=== PATIENT | female | born 1930 | race Caucasian/White ===

== ENCOUNTER 2017-11-03 12:55 | Inpatient (IN) | payer MEDICARE, BC ==
[~2017-11-03] VITALS: Ht 195.6 cm; Wt 77.6 kg
[~2017-11-03 12:55] MED LIST: CALC1TAB PO; CYAN100071 PO; ESOM40CA PO; LACT1CAP71 PO; LEVO88TA5 PO; LISI40TA4 PO; OMEG1CAP18 PO; PARO20TA7 PO; POLY17PO4 PO; QUET25TA PO
--- NOTE | 2017-11-03 13:00 | NUR ---
PATIENT TO ED DT PERSISTENT ABDOMINAL PAIN, 6/10, NON RADIATING. PATIENT WAS SEEN YESTERDAY AT [facility] FOR THE SAME COMPLAINT. PATIENT IS AWAKE AND ALERT, VSS.
--- NOTE | 2017-11-03 13:25 | NUR ---
LEFT A VOICEMAIL TO MD FROY MCCARTNEY-- [phone] OFFICE IS CLOSE FOR LUNCH UNTIL 1400. WILL AGAIN IF NO CALL BACK RECEIVED
[2017-11-03] MEDS ORDERED: IV NS 0.9% 500 ML BAG IV ONE (13:30)
[2017-11-03] MEDS ORDERED: MAG HYDROX/AL HYDROX/SIMETH 30 ML UDC PO ONE (13:30)
[2017-11-03] MEDS ORDERED: LIDOCAINE VISCOUS 2% UD 15 ML UDC MM ONE (13:30)
[2017-11-03] MEDS ORDERED: MAG HYDROX/AL HYDROX/SIMETH 30 ML UDC ONE (13:44)
[2017-11-03] MEDS ORDERED: LIDOCAINE VISCOUS 2% UD 15 ML UDC ONE (13:44)
[2017-11-03 13:45] LABS: BASOPHILS # (AUTO) 0.2 /CMM (0.0-0.2); EOSINOPHILS # (AUTO) 0.1 /CMM (0.0-0.7); EOSINOPHILS % (AUTO) 1.1 % (0.0-6.0); HEMATOCRIT 39 % (33-45); HEMOGLOBIN 13.1 g/dL (11.5-14.8); LYMPHOCYTES # (AUTO) 1.2 /CMM (0.8-4.8); LYMPHOCYTES % (AUTO) 15.8 % (20.0-44.0); MEAN CORPUSCULAR HEMOGLOBIN 30 PG (26.0-33.0); MEAN CORPUSCULAR HGB CONC 34 g/dl (31.0-36.0); MEAN CORPUSCULAR VOLUME 88 fL (82-100); MONOCYTES # (AUTO) 0.8 /CMM (0.1-1.30); MONOCYTES % (AUTO) 10.4 % (2.0-12.0); NEUTROPHILS # (AUTO) 5.4 /CMM (1.8-8.9); NEUTROPHILS % (AUTO) 69.7 % (43.0-81.0); PLATELET COUNT (AUTO) 256 /CMM (150-450); RDW COEFFICIENT OF VARIATION 13.3 (11.5-15.0); RED BLOOD CELL COUNT(AUTO) 4.39 MIL/uL (4.0-5.2); WHITE BLOOD COUNT (AUTO) 7.7 K/uL (4.3-11.0)
[2017-11-03 13:54] LABS: CALCIUM, SERUM 9.3 mg/dL (8.5-10.1); CARBON DIOXIDE 27 mmol/L (21-32); CHLORIDE 106 mmol/L (98-107); GLUCOSE 100 mg/dL (74-106); POTASSIUM 3.8 mmol/L (3.5-5.1); SODIUM SERUM 138 mmol/L (136-145); UREA NITROGEN, BLOOD 15 mg/dL (7-18)
[2017-11-03 14:01] LABS: ALANINE AMINOTRANSFERASE 27 U/L (12-78); ALBUMIN 3.6 g/dL (3.4-5.0); ALKALINE PHOSPHATASE 89 U/L (46-116); ASPARTATE AMINOTRANSFERASE 19 U/L (15-37); BILIRUBIN,DIRECT 0.1 mg/dL (0.0-0.2); BILIRUBIN,TOTAL 0.7 mg/dL (0.2-1.0); LIPASE 165 U/L (73-393); TOTAL PROTEIN, SERUM 7.1 g/dL (6.4-8.2)
[2017-11-03 14:03] LABS: TROPONIN I < 0.017 ng/mL (0.00-0.056)
--- NOTE | 2017-11-03 14:48 | NUR ---
PAGED DR MCCARTNEY AGAIN
--- NOTE | 2017-11-03 14:52 | NUR ---
PER MD IQBAL, PT WILL PROBABLY BE ADMITTED TO [facility],
--- NOTE | 2017-11-03 15:14 | NUR ---
PAGED LETICIA FOR EVAL
[2017-11-03] MEDS ORDERED: LOSA50TA21 PO (15:31)
[2017-11-03] MEDS ORDERED: DOXE10CA2 PO (15:31)
[2017-11-03] MEDS ORDERED: LORA0.5T PO (15:31)
[2017-11-03] MEDS ORDERED: PARO40TA PO (15:31)
--- NOTE | 2017-11-03 15:43 | NUR ---
ADMIT UNDER MD KIRBY
[2017-11-03] MEDS ORDERED: LORAZEPAM 1 MG TABLET PO ONE (17:00)
[2017-11-03] MEDS ORDERED: LORAZEPAM 1 MG TABLET ONE (17:08)
--- NOTE | 2017-11-03 17:14 | NUR ---
REPORT GIVEN TO TERE LOPEZ FOR BRITTNEY
--- NOTE | 2017-11-03 17:18 | NUR ---
PATIENT WAS TRANSPORTED TO [facility]. VSS
[2017-11-03] MEDS ORDERED: MAGNESIUM HYDROXIDE 30 ML UDC PO PRN (18:00)
--- NOTE | 2017-11-03 18:12 | NUR ---
RN-CO:Upon face to face , patient who is alert and oriented x4,calm and cooperative. She signed the Voluntary admission. Dr Ponce seen and examined her today with orders noted. Patient;s belongings was screened and valuables was taken to safe. Body assessment was done by primary RN. Orientation to the unit was rendered, and "Patient's Rights was discussed, booklet was given." We will endorsed the admission to the admitting RN for night club manager.
--- NOTE | 2017-11-03 18:13 | NUR ---
RN NOTE: skin assessment and pictures done.
[2017-11-03 19:00] VITALS: BP 142/78
--- NOTE | 2017-11-03 19:05 | NUR ---
GPS/RN-NOTES: PATIENT C/O DIFFICULTY HAVING BOWEL MOVEMENT, PATIENT STATED SHE HAD BM 3-4 DAYS AGO, REQUESTED ENEMA, FLEET ENEMA 1 PER RECTALLY GIVEN PRN ORDER, WITH GOOD EFFECT.
[2017-11-03] MEDS: NA PHOS,M-B/NA PHOS,DI-BA 1 EA ENEMA RC PRN (19:28)
[2017-11-03] MEDS ORDERED: ONDANSETRON HCL 4 MG/5 ML SOLUTION PO PRN (20:00)
--- NOTE | 2017-11-03 20:00 | NUR ---
GPS RN NOTES: SPOKE TO ALEX GUZMÁN [employer], COVERING FOR DR. JARAMILLO REGARDING MEDICATION RECONCILIATION SHE SAID TO CONTINUE HOME MEDS. PATIENT NOTED VOMITING, NOTIFIED ALEX GUZMÁN WITH ORDER OF ZOFRAN 4MG PO Q6HRS PRN NOTED AND CARRIED OUT. WILL CONTINUE TO MONITOR.
[2017-11-03] MEDS ORDERED: ONDANSETRON 4 MG TAB.RAPDIS PO PRN (20:30)
[2017-11-03] MEDS: PAROXETINE HCL 20 MG TABLET PO SCH (21:43)
[2017-11-03] MEDS: DOXEPIN HCL (25 MG) 25 MG CAPSULE PO SCH (21:43)
[2017-11-04] MEDS: MAG HYDROX/AL HYDROX/SIMETH 30 ML UDC PO PRN ×2 (06:56→11:10)
[2017-11-04] MEDS: CALCIUM CARB 600MG /VIT D 1 EACH TABLET PO SCH (08:23)
[2017-11-04] MEDS: LOSARTAN POTASSIUM 50 MG TABLET PO SCH (08:24)
[2017-11-04] MEDS: LEVOTHYROXINE SODIUM 88 MCG TABLET PO SCH (08:24)
[2017-11-04] MEDS: CYANOCOBALAMIN 500 MCG TABLET PO SCH (08:24)
[2017-11-04] MEDS: POLYETHYLENE GLYCOL 3350 17 GM POWD.PACK PO SCH (08:25)
[2017-11-04 08:38] VITALS: BP 176/100
[2017-11-04 08:49] LABS: ALANINE AMINOTRANSFERASE 30 U/L (12-78); ALBUMIN 3.2 g/dL (3.4-5.0); ALKALINE PHOSPHATASE 83 U/L (46-116); ASPARTATE AMINOTRANSFERASE 19 U/L (15-37); BILIRUBIN,TOTAL 0.8 mg/dL (0.2-1.0); CALCIUM, SERUM 9.3 mg/dL (8.5-10.1); CARBON DIOXIDE 26 mmol/L (21-32); CHLORIDE 107 mmol/L (98-107); GLUCOSE 107 mg/dL (74-106); POTASSIUM 4.1 mmol/L (3.5-5.1); SODIUM SERUM 139 mmol/L (136-145); TOTAL PROTEIN, SERUM 6.6 g/dL (6.4-8.2); UREA NITROGEN, BLOOD 14 mg/dL (7-18)
[2017-11-04 09:04] LABS: CHOLESTEROL 200 mg/dL (<200); HDL CHOLESTEROL 40 mg/dL (40-60); LDL 139 mg/dL (0-99); TRIGLYCERIDES 197 mg/dL (30-150)
[2017-11-04] MEDS: LORAZEPAM 0.5 MG TABLET PO PRN (09:51)
--- NOTE | 2017-11-04 09:51 | NUR ---
GPS RN NOTE: PATIENT FEELING ANXIOUS ATIVAN 0.5 MG PO PRN GIVEN PER ORDER WILL CONTINUE MONITORING
--- NOTE | 2017-11-04 12:52 | NUR ---
GPS RN NOTE: NOTIFIED DR GUZMÁN REGARDING PT COMPLAINING OF ABDOMINAL PAIN . NEW T.O. ORDER ABDOMINAL US ORDER PLACED AND CARED OUT WILL CONTINUE MONITORING.
--- NOTE | 2017-11-04 15:00 | NUR ---
RN-CO: Patient is extremely anxious, focus on her abdomen (MD aware of her pain with orders), paged Dr. Ponce as patient request to increase her Ativan. Awaiting to call back.
[2017-11-04 16:51] VITALS: BP 140/70
[2017-11-04 18:18] LABS: APPEARANCE,URINE CLEAR (CLEAR); BILIRUBIN,URINE NEGATIVE (NEGATIVE); BLOOD, URINE NEGATIVE Ery/uL (NEGATIVE); COLOR,URINE YELLOW (YELLOW); KETONES,URINE NEGATIVE (NEGATIVE); LEUKOCYTE ESTERASE ,URINE 1+ (NEGATIVE); NITRITE, URINE NEGATIVE (NEGATIVE); PROTEIN,URINE NEGATIVE (NEGATIVE); UGLUCOSE NEGATIVE (NEGATIVE); UROBILINOGEN,URINE 0.2 EU/dL (0.2)
[2017-11-04 18:40] LABS: RBC,URINE 0-2 /HPF (0-2)
[2017-11-04 18:41] LABS: BACTERIA,URINE Few /HPF (None Seen); SQUAMOUS EPITHELIAL CELL,UR Rare /HPF (None Seen)
[2017-11-04 20:00] VITALS: BP 150/80
[2017-11-04] MEDS: DOXEPIN HCL (25 MG) 25 MG CAPSULE PO SCH (21:35)
[2017-11-04] MEDS: PAROXETINE HCL 20 MG TABLET PO SCH (21:35)
[2017-11-04] MEDS: SIMVASTATIN 10 MG TABLET PO SCH (21:35)
[2017-11-04] MEDS: ZOLPIDEM TARTRATE 10 MG TABLET PO PRN (21:36)
--- NOTE | 2017-11-04 21:36 | NUR ---
AMBIEN 10 MG TAB 1 PO GIVEN FOR SLEEP.
[2017-11-05] MEDS: LEVOTHYROXINE SODIUM 88 MCG TABLET PO SCH (07:54)
[2017-11-05 08:00] VITALS: BP 159/89
[2017-11-05] MEDS: CALCIUM CARB 600MG /VIT D 1 EACH TABLET PO SCH (08:22)
[2017-11-05] MEDS: CYANOCOBALAMIN 500 MCG TABLET PO SCH (08:22)
[2017-11-05] MEDS: LOSARTAN POTASSIUM 50 MG TABLET PO SCH (08:22)
[2017-11-05] MEDS: POLYETHYLENE GLYCOL 3350 17 GM POWD.PACK PO SCH (08:22)
[2017-11-05] MEDS: MAG HYDROX/AL HYDROX/SIMETH 30 ML UDC PO PRN ×2 (09:44→17:17)
--- NOTE | 2017-11-05 09:45 | NUR ---
RN NOTE: PATIENT HAS INDIGESTION AND STOMACH WAS UNCOMFORTABLE. GIVING PATIENT MAALOX.
--- NOTE | 2017-11-05 10:12 | NUR ---
Initial Discharge Note: [place] at [address] [place] [address] / [phone]. Patient states that she would like to return there upon discharge. Patient states that it is a nice place for seniors. JULIO called and spoke with patient's sister, Odilia [phone]. Odilia thanked JULIO for getting in touch and updating her. JULIO sent a message to patient's psychiatrist, Dr. Ponce, asking when the discharge date was planned for. JULIO to facilitate safe and proper discharge.
[2017-11-05] MEDS: PANTOPRAZOLE 40 MG TABLET.DR PO SCH (11:31)
--- NOTE | 2017-11-05 12:28 | NUR ---
RN NOTE: PATIENT IS ANXIOUS AND ANGRY. PATIENT GIVEN LORAZEPAM 0.5MG.
[2017-11-05] MEDS: LORAZEPAM 0.5 MG TABLET PO PRN ×2 (12:29→21:10)
--- NOTE | 2017-11-05 13:17 | NUR ---
DR. PEREZ NOTIFIED THAT PT. IS COMPLAINING ON ABDOMINAL PAIN WITH DISTENDED ABDOMEN AND PT. CLAIMED NOT HAVING A BM FOR COUPLE OF DAYS AND HAD FLEET ENEMA ON THE 11/03 AND HAD NOT A LOT OF BM. PT. HAD ABDOMINAL US ON 11/05. DR. PEREZ ORDERED TO DO ANOTHER FLEET ENEMA.
[2017-11-05] MEDS: NA PHOS,M-B/NA PHOS,DI-BA 1 EA ENEMA RC PRN (13:34)
--- NOTE | 2017-11-05 13:58 | NUR ---
RN NOTE: PATIENT UNCOMFORTABLE AND NEEDS BM RELIEF. FLEET ENEMA GIVEN. BM NOTED.
[2017-11-05 15:50] VITALS: BP 129/63
--- NOTE | 2017-11-05 17:18 | NUR ---
RN NOTE: PATIENT STATES STOMACH NOT FEELING WELL. MAALOX GIVEN.
[2017-11-05 20:00] VITALS: BP 157/78
[2017-11-05] MEDS: DOXEPIN HCL (25 MG) 25 MG CAPSULE PO SCH (21:10)
[2017-11-05] MEDS: PAROXETINE HCL 20 MG TABLET PO SCH (21:10)
[2017-11-05] MEDS: SIMVASTATIN 10 MG TABLET PO SCH (21:10)
--- NOTE | 2017-11-05 21:13 | NUR ---
Lorazepam 0.5 mg tab 1 po given, feeling anxious, and irritable.
[2017-11-06] MEDS: PANTOPRAZOLE 40 MG TABLET.DR PO SCH (06:35)
[2017-11-06] MEDS: MAG HYDROX/AL HYDROX/SIMETH 30 ML UDC PO PRN ×2 (06:44→12:53)
[2017-11-06] MEDS: LEVOTHYROXINE SODIUM 88 MCG TABLET PO SCH (07:29)
[2017-11-06 08:40] VITALS: BP 167/76
[2017-11-06] MEDS: CALCIUM CARB 600MG /VIT D 1 EACH TABLET PO SCH (08:44)
[2017-11-06] MEDS: LOSARTAN POTASSIUM 50 MG TABLET PO SCH (08:44)
[2017-11-06] MEDS: CYANOCOBALAMIN 500 MCG TABLET PO SCH (08:44)
[2017-11-06] MEDS: POLYETHYLENE GLYCOL 3350 17 GM POWD.PACK PO SCH (08:44)
[2017-11-06] MEDS: LORAZEPAM 0.5 MG TABLET PO PRN ×3 (10:05→22:45)
--- NOTE | 2017-11-06 10:06 | NUR ---
RN NOTE: PATIENT IS RESTLESS AND ANXIOUS. PATIENT GIVEN LORAZEPAM 0.5 MG.
--- NOTE | 2017-11-06 10:08 | NUR ---
RN NOTE: PATIENT DROPPED LORAZEPAM ON THE FLOOR. PATIENT DEMANDED A NEW PILL. I TOOK THE OLD PILL AND PUT IT IN THE PHARM BIN.
--- NOTE | 2017-11-06 12:53 | NUR ---
RN NOTE: MAALOX GIVEN TO PATIENT FOR INDIGESTION. PATIENT STATES SHE HAS THE STOMACH PAIN AGAIN.
[2017-11-06 16:00] VITALS: BP 128/78
--- NOTE | 2017-11-06 16:07 | NUR ---
RN NOTE: PATIENT IS ANXIOUS AND RESTLESS. LORAZEPAM 0.5 MG GIVEN.
[2017-11-06 20:00] VITALS: BP 149/76
[2017-11-06] MEDS: PAROXETINE HCL 20 MG TABLET PO SCH (22:44)
[2017-11-06] MEDS: DOXEPIN HCL (25 MG) 25 MG CAPSULE PO SCH (22:44)
[2017-11-06] MEDS: SIMVASTATIN 10 MG TABLET PO SCH (22:45)
--- NOTE | 2017-11-06 22:45 | NUR ---
LORAZEPAM 0.5 MG TAB PO GIVEN FOR ANXIETY
[2017-11-07] MEDS: PANTOPRAZOLE 40 MG TABLET.DR PO SCH (07:51)
[2017-11-07] MEDS: LEVOTHYROXINE SODIUM 88 MCG TABLET PO SCH (07:52)
[2017-11-07 08:00] VITALS: BP 168/72
[2017-11-07] MEDS: CYANOCOBALAMIN 500 MCG TABLET PO SCH (08:10)
[2017-11-07] MEDS: POLYETHYLENE GLYCOL 3350 17 GM POWD.PACK PO SCH (08:10)
[2017-11-07] MEDS: LOSARTAN POTASSIUM 50 MG TABLET PO SCH (08:10)
[2017-11-07] MEDS: CALCIUM CARB 600MG /VIT D 1 EACH TABLET PO SCH (08:11)
[2017-11-07] MEDS: LORAZEPAM 0.5 MG TABLET PO PRN (12:48)
--- NOTE | 2017-11-07 12:48 | NUR ---
[id number]: GAVE ATIVAN 0.5 MG PO DUE TO INCREASED ANXIETY UPON PT REQUEST AND WILL CONTINUE TO MONITOR FOR EFFECTIVENESS OF MEDICATION
--- NOTE | 2017-11-07 12:48 | NUR ---
[id number]: GAVE MILK OF MAGNESIA 30 ML PO DUE TO CONSTIPATION UPON PT REQUEST AND WILL CONTINUE TO MONITOR FOR EFFECTIVENESS OF MEDICATION
[2017-11-07] MEDS: ACETAMINOPHEN 325 MG TABLET PO PRN (15:57)
--- NOTE | 2017-11-07 15:57 | NUR ---
[id number]: GAVE TYLENOL 650 MG POP DUE TO GENERALIZED PAIN 03/13 UPON PT REQUEST AND WILL CONTINUE TO MONITOR FOR EFFECTIVENESS OF MEDICATION.
[2017-11-07 16:00] VITALS: BP 159/74
[2017-11-07 20:19] VITALS: BP 128/78
[2017-11-07] MEDS: PAROXETINE HCL 20 MG TABLET PO SCH (21:11)
[2017-11-07] MEDS: DOXEPIN HCL (25 MG) 25 MG CAPSULE PO SCH (21:11)
[2017-11-07] MEDS: SIMVASTATIN 10 MG TABLET PO SCH (21:13)
[2017-11-08] MEDS: LORAZEPAM 0.5 MG TABLET PO PRN ×2 (06:11→15:36)
--- NOTE | 2017-11-08 06:12 | NUR ---
RN GPS NOTES PT. C/O ANXIETY ,LORAZEPAM 0.5 MG TAB PO GIVEN FOR ANXIETY
[2017-11-08 08:00] VITALS: BP 146/84
[2017-11-08] MEDS: PANTOPRAZOLE 40 MG TABLET.DR PO SCH (08:34)
[2017-11-08] MEDS: LOSARTAN POTASSIUM 50 MG TABLET PO SCH (08:35)
[2017-11-08] MEDS: POLYETHYLENE GLYCOL 3350 17 GM POWD.PACK PO SCH (08:37)
[2017-11-08] MEDS: CALCIUM CARB 600MG /VIT D 1 EACH TABLET PO SCH (08:39)
[2017-11-08] MEDS: LEVOTHYROXINE SODIUM 88 MCG TABLET PO SCH (08:39)
[2017-11-08] MEDS: CYANOCOBALAMIN 500 MCG TABLET PO SCH (09:30)
[2017-11-08] MEDS: MAG HYDROX/AL HYDROX/SIMETH 30 ML UDC PO PRN (11:18)
--- NOTE | 2017-11-08 11:18 | NUR ---
[id number]: GAVE MAALOX 30 ML PO DUE TO INDIGESTION UPON PT REQUEST AND WILL CONTINUE TO MONITOR FOR EFFECTIVENESS OF MEDICATION
[2017-11-08] MEDS: NA PHOS,M-B/NA PHOS,DI-BA 1 EA ENEMA RC PRN (11:56)
--- NOTE | 2017-11-08 11:56 | NUR ---
[id number]: GAVE FLEET ENEMA DUE TO CONSTIPATION AND WILL CONTINUE TO MONITOR FOR EFFECTIVENESS OF MEDICATION
--- NOTE | 2017-11-08 15:42 | NUR ---
GPS/RN NOTE LORAZEPAM 0.5 MG TAB PO GIVEN FOR ANXIETY. NO ASE NOTED.
[2017-11-08 16:00] VITALS: BP 135/75
[2017-11-08 20:19] VITALS: BP 138/90
[2017-11-08] MEDS: DOXEPIN HCL (25 MG) 25 MG CAPSULE PO SCH (21:27)
[2017-11-08] MEDS: PAROXETINE HCL 20 MG TABLET PO SCH (21:27)
[2017-11-08] MEDS: SIMVASTATIN 10 MG TABLET PO SCH (21:28)
[2017-11-09] MEDS: LEVOTHYROXINE SODIUM 88 MCG TABLET PO SCH (07:41)
[2017-11-09] MEDS: PANTOPRAZOLE 40 MG TABLET.DR PO SCH (07:41)
[2017-11-09 08:00] VITALS: BP 130/99
[2017-11-09] MEDS: POLYETHYLENE GLYCOL 3350 17 GM POWD.PACK PO SCH (08:09)
[2017-11-09] MEDS: CALCIUM CARB 600MG /VIT D 1 EACH TABLET PO SCH (08:10)
[2017-11-09] MEDS: LOSARTAN POTASSIUM 50 MG TABLET PO SCH (08:10)
[2017-11-09] MEDS: CYANOCOBALAMIN 500 MCG TABLET PO SCH (08:10)
[2017-11-09] MEDS: LORAZEPAM 0.5 MG TABLET PO PRN (09:24)
--- NOTE | 2017-11-09 09:24 | NUR ---
[id number]: GAVE ATIVAN 0.5 MG PO DUE TO SEVERE ANXIETY UPON PT REQUEST AND WILL CONTINUE TO MONITOR FOR EFFECTIVENESS OF MEDICATION
[2017-11-09] MEDS: MAG HYDROX/AL HYDROX/SIMETH 30 ML UDC PO PRN (12:00)
--- NOTE | 2017-11-09 12:00 | NUR ---
[id number]-[id number]: GAVE MAALOX 30 ML PO DUE TO INDIGESTION UPON PT REQUEST AND WILL CONTINUE TO MONITOR FOR EFFECTIVENESS OF MEDICATION
[2017-11-09] MEDS: ACETAMINOPHEN 325 MG TABLET PO PRN (13:22)
--- NOTE | 2017-11-09 13:22 | NUR ---
[id number]: GAVE 650 MG PO DUE TO 5/10 GENERALIZED PAIN UPON PT REQUEST AND WILL CONTINUE TO MONITOR FOR EFFECTIVENESS OF MEDICATION
[2017-11-09 16:24] VITALS: BP 122/76
[2017-11-09 20:11] VITALS: BP 134/74
[2017-11-09] MEDS: DOXEPIN HCL (25 MG) 25 MG CAPSULE PO SCH (21:13)
[2017-11-09] MEDS: PAROXETINE HCL 20 MG TABLET PO SCH (21:14)
[2017-11-09] MEDS: SIMVASTATIN 10 MG TABLET PO SCH (21:14)
[2017-11-10] MEDS: LORAZEPAM 0.5 MG TABLET PO PRN ×2 (05:03→13:10)
--- NOTE | 2017-11-10 05:03 | NUR ---
RN NOTES ADMINISTERED ATIVAN .5MG AT PATIENT REQUEST FOR ANXIETY. VSS. WILL CONTINUE TO MONITOR
[2017-11-10 07:55] VITALS: BP 162/71
[2017-11-10] MEDS: CALCIUM CARB 600MG /VIT D 1 EACH TABLET PO SCH (09:00)
[2017-11-10] MEDS: POLYETHYLENE GLYCOL 3350 17 GM POWD.PACK PO SCH (09:00)
[2017-11-10] MEDS: LOSARTAN POTASSIUM 50 MG TABLET PO SCH (10:16)
[2017-11-10] MEDS: PANTOPRAZOLE 40 MG TABLET.DR PO SCH (10:17)
[2017-11-10] MEDS: CYANOCOBALAMIN 500 MCG TABLET PO SCH (10:17)
[2017-11-10] MEDS: LEVOTHYROXINE SODIUM 88 MCG TABLET PO SCH (10:18)
[2017-11-10 16:16] VITALS: BP 135/93
[2017-11-10 20:31] VITALS: BP 130/69
[2017-11-10] MEDS: DOXEPIN HCL (25 MG) 25 MG CAPSULE PO SCH (21:02)
[2017-11-10] MEDS: SIMVASTATIN 10 MG TABLET PO SCH (21:02)
[2017-11-10] MEDS: PAROXETINE HCL 20 MG TABLET PO SCH (21:02)
[2017-11-10] MEDS: ZOLPIDEM TARTRATE 10 MG TABLET PO PRN (22:06)
[2017-11-11 08:00] VITALS: BP 138/65
[2017-11-11 08:37] VITALS: BP 138/65
[2017-11-11] MEDS: PANTOPRAZOLE 40 MG TABLET.DR PO SCH (08:37)
[2017-11-11] MEDS: LEVOTHYROXINE SODIUM 88 MCG TABLET PO SCH (08:37)
[2017-11-11] MEDS: CYANOCOBALAMIN 500 MCG TABLET PO SCH (08:37)
[2017-11-11] MEDS: LOSARTAN POTASSIUM 50 MG TABLET PO SCH (08:37)
[2017-11-11] MEDS: POLYETHYLENE GLYCOL 3350 17 GM POWD.PACK PO SCH (08:38)
[2017-11-11] MEDS: CALCIUM CARB 600MG /VIT D 1 EACH TABLET PO SCH (09:00)
--- NOTE | 2017-11-11 09:00 | NUR ---
RN-CO: DR MCCARTNEY GAVE THE ORDER TO DISCHARGE THE PATIENT TODAY AND DISCONTINUE PRNs. PATIENT REMAINS CALM AND COOPERATIVE TO CARE. DENIED SUICIDAL AND HOMICIDAL IDEATION. DENIED AH /VH. COMPLIANT WITH MEDICATIONS.
[2017-11-11] MEDS: MAG HYDROX/AL HYDROX/SIMETH 30 ML UDC PO PRN (10:15)
--- NOTE | 2017-11-11 11:36 | NUR ---
Discharge Note: Patient to discharge home to [facility] at [address] [place] [address] / [phone]. Patient will be transported via [employer] [phone], at 1pm. Patients sister Odilia [phone] is aware of discharge. SW faxed a home health order to [facility], / fax #[phone]. Upon discharge, patient is cooperative. Patient denies suicidal and homicidal ideation. Patient denies visual and auditory hallucinations. Patient will follow up with her mounting machine operator, Dr. Cornell [address] [facility] [address], [place] [address] / [phone]. Patient stated that she does not want mental health social worker to make an appointment with her psychiatrist Dr. Ponce [address] [facility] [address], [place] [address]/ [phone]. Per patient, she has to first arrange transportation before making the appointment to make sure the two coincide. Dr. Ponce is aware.
--- NOTE | 2017-11-11 14:00 | NUR ---
GPS/RN PATIENT CLEARED FOR DISCHARGE TO [facility] BY DR MCCARTNEY AND DR PEREZ. MEDICATIONS RECONCILED BY BOTH DR'S, MEDICATIONS, AFTERCARE PLAN AND EXIT CARE PACKET EXPLAINED TO PATIENT, VERBALIZED UNDERSTANDING.BELONGINGS AND VALUABLES RETURNED TO PATIENT AND BELONGING FORM SIGNED . PRESCRIPTIONS FAXED TO PHARMACY. SKIN PICTURES TAKEN, PATIENT DENIES SI/HI/AH UPON DISCHARGE, PSYCHIATRIC TREATMENT PLANS MET, LEFT UNIT CALM, COOPERATIVE, NO DISTRESS NOTED WITH SOUND DESIGNER AT SIDE, LEFT HOSPITAL VIA TAXI.
== END 2017-11-11 14:10 | DRG 885 ==
LOC: ER 12:59 → GPS 17:12
PROVIDERS: ADMIT Psychiatry & Neurology Psychiatry; ATTEND Internal Medicine
DX: F33.9 Major depressive disorder, recurrent, unspecified (principal); E03.9 Hypothyroidism, unspecified; F41.9 Anxiety disorder, unspecified; I10 Essential (primary) hypertension; K21.9 Gastro-esophageal reflux disease without esophagitis; E78.5 Hyperlipidemia, unspecified; K58.9 Irritable bowel syndrome, unspecified; R10.13 Epigastric pain
CPT/HCPCS: 36415; 71045-TC; 76700-TC; 80048-TC; 80053-TC; 80061-TC; 80076-TC; 81000-TC; 83690-TC; 84443-TC; 84484-TC; 85025-TC; 87081-TC; 87086-TC; A4606; A6402; A6403; J7040; Q0162; Z7610

== ENCOUNTER 2017-11-16 11:02 | Inpatient (IN) | payer MEDICARE, BC ==
[~2017-11-16] VITALS: Ht 165.1 cm; Wt 78.0 kg
[~2017-11-16 11:02] MED LIST changes: -ESOM40CA PO; -LACT1CAP71 PO; -LISI40TA4 PO; +LOSA50TA21 PO; -OMEG1CAP18 PO; -PARO20TA7 PO; -QUET25TA PO
--- NOTE | 2017-11-16 11:38 | NUR ---
RECIEVED PT TO ED BED 01, PER REPRORT PT WAS SENT BY DR MCCARTNEY FOR PSYCH EVAL AND ABD DISTENTION. PT DENIES PAIN. PT STS THAT SHE FEELS LIKE SHE'S RETAINING URINE. PT SAID SHE URINATES BUT SHE FEELS LIKE SHE NEEDS TO EMPTY HER BOWEL MORE. DENIES DYSURIA AND HEMATURIA. NAD VSS RR EVEN AND UNLABORED. SKIN IS WARM AND NON DIAPHROETIC. PENDING ER MD EVALUATION
[2017-11-16] MEDS ORDERED: IV NS 0.9% 500 ML BAG IV ONE (12:30)
[2017-11-16] MEDS ORDERED: CYAN10009 PO (12:33)
[2017-11-16] MEDS ORDERED: PARO20TA7 PO (12:33)
[2017-11-16] MEDS ORDERED: DOXE50CA4 PO (12:33)
[2017-11-16] MEDS ORDERED: PANT40TA2 PO (12:33)
[2017-11-16] MEDS ORDERED: SIMV10TA6 PO (12:33)
[2017-11-16 12:34] LABS: BASOPHILS % (AUTO) 0.6 % (0.0-2.0); EOSINOPHILS # (AUTO) 0.2 /CMM (0.0-0.7); EOSINOPHILS % (AUTO) 2.6 % (0.0-6.0); HEMATOCRIT 41 % (33-45); HEMOGLOBIN 13.7 g/dL (11.5-14.8); LYMPHOCYTES # (AUTO) 1.7 /CMM (0.8-4.8); LYMPHOCYTES % (AUTO) 24.3 % (20.0-44.0); MEAN CORPUSCULAR HEMOGLOBIN 30 PG (26.0-33.0); MEAN CORPUSCULAR HGB CONC 34 g/dl (31.0-36.0); MEAN CORPUSCULAR VOLUME 89 fL (82-100); MONOCYTES # (AUTO) 0.6 /CMM (0.1-1.30); MONOCYTES % (AUTO) 9.1 % (2.0-12.0); NEUTROPHILS # (AUTO) 4.3 /CMM (1.8-8.9); NEUTROPHILS % (AUTO) 63.4 % (43.0-81.0); PLATELET COUNT (AUTO) 294 /CMM (150-450); RDW COEFFICIENT OF VARIATION 13.8 (11.5-15.0); RED BLOOD CELL COUNT(AUTO) 4.59 MIL/uL (4.0-5.2); WHITE BLOOD COUNT (AUTO) 6.8 K/uL (4.3-11.0)
[2017-11-16 12:39] LABS: APPEARANCE,URINE Clear (CLEAR); BILIRUBIN,URINE Negative (NEGATIVE); BLOOD, URINE Negative Ery/uL (NEGATIVE); COLOR,URINE Yellow (YELLOW); KETONES,URINE Negative (NEGATIVE); LEUKOCYTE ESTERASE ,URINE Negative (NEGATIVE); NITRITE, URINE Negative (NEGATIVE); PH,URINE 6.5 (5.0-8.0); PROTEIN,URINE Negative (NEGATIVE); UGLUCOSE Negative (NEGATIVE); UROBILINOGEN,URINE 0.2 EU/dL (0.2)
[2017-11-16 12:42] LABS: CALCIUM, SERUM 10.3 mg/dL (8.5-10.1); CARBON DIOXIDE 26 mmol/L (21-32); CHLORIDE 106 mmol/L (98-107); CREATININE 1.3 mg/dL (0.6-1.3); GLUCOSE 98 mg/dL (74-106); POTASSIUM 3.6 mmol/L (3.5-5.1); SODIUM SERUM 142 mmol/L (136-145); UREA NITROGEN, BLOOD 14 mg/dL (7-18)
[2017-11-16 12:48] LABS: ALANINE AMINOTRANSFERASE 29 U/L (12-78); ALBUMIN 4.3 g/dL (3.4-5.0); ALCOHOL, BLOOD < 3 mg/dL (0-0); ALKALINE PHOSPHATASE 98 U/L (46-116); ASPARTATE AMINOTRANSFERASE 17 U/L (15-37); BILIRUBIN,DIRECT 0.3 mg/dL (0.0-0.2); BILIRUBIN,TOTAL 1.2 mg/dL (0.2-1.0)
--- NOTE | 2017-11-16 14:59 | NUR ---
IV removed. Catheter intact and site benign. Pressure and 4x4 applied to site. No bleeding noted.
--- NOTE | 2017-11-16 15:00 | NUR ---
Miranda catheter discontinued.
--- NOTE | 2017-11-16 15:01 | NUR ---
PER DR. FOOTE, CT SCAN OF ABDOMEN IS CLEAR, PT CAN GO TO [facility]
--- NOTE | 2017-11-16 15:10 | NUR ---
REPORT GIVEN TO COURT CARRANZA FOR CONT OF CARE
--- NOTE | 2017-11-16 16:08 | NUR ---
TRANSFERRED TO [facility] IN STABLE CONDITION
[2017-11-16 16:46] VITALS: BP 160/76
--- NOTE | 2017-11-16 18:51 | NUR ---
GPS/RN-NOTES ADMITTED PATIENT 87 YEARS OLD FEMALE. PATIENT ALERT ORIENTED X4 AMBULATORY. PATIENT ADMITTED VOLUNTARY. CALLED DR. MCCARTNEY ( PSYCHIATRIST) FOR ORDERS AND AND LEFT A MESSAGE VIA VOICE MAIL. STILL AWAITING FOR CALL BACK. DR. CARDOZA ( CONTACT LENS MANUFACTURER) AWARE OF PATIENT ADMISSION AND RECONCILE PATIENT MEDICATIONS. UPON FACE TO FACE ASSESSMENT WITH THE PATIENT PATIENT ADMITTED SHE IS DEPRESSED BUT DENIES SI/HI AT THIS TIME. BODY CHECK AND CONTRABAND DONE. PATIENT WAS ORIENTED IN THE UNIT AND UNIT POLICIES. PATIENT SISTER KARLEE TURNER( ) MADE AWARE OF PATIENT ADMISSION IN THE UNIT. PATIENT'S RIGHT WAS DISCUSS WITH THE PATIENT WITH UNDERSTANDING.PATIENT'S RIGHT HANDBOOK WAS GIVEN TO THE PATIENT. WILL ENDORSE TO INCOMING NURSE FOR CONTINUITY OF CARE AND TO FOLLOW UP ORDERS FROM THE PSYCHIATRIST.
[2017-11-16] MEDS ORDERED: ACETAMINOPHEN 325 MG TABLET PO PRN (19:00)
[2017-11-16] MEDS ORDERED: MAGNESIUM HYDROXIDE 30 ML UDC PO PRN (19:00)
[2017-11-16] MEDS ORDERED: MAG HYDROX/AL HYDROX/SIMETH 30 ML UDC PO PRN (19:00)
--- NOTE | 2017-11-16 19:39 | NUR ---
GPS/RN-NOTES DR. MCCARTNEY SEEN THE PATIENT WITH VERBAL ORDER OF AMBIEN 10 MG P.O Q HS PRN AND ATIVAN 0.5MG P.O Q6HRS PRN. NOTED AND CARRIED OUT.
[2017-11-16] MEDS ORDERED: ZOLPIDEM TARTRATE 10 MG TABLET PO PRN (20:00)
[2017-11-16 20:39] VITALS: BP 134/76
[2017-11-16] MEDS: SIMVASTATIN 10 MG TABLET PO SCH (21:11)
[2017-11-16] MEDS ORDERED: TRAZODONE 50 MG TABLET PO SCH (22:00)
[2017-11-16] MEDS ORDERED: DOXEPIN HCL (25 MG) 25 MG CAPSULE PO SCH ×2 (22:00)
[2017-11-16] MEDS: LORAZEPAM 0.5 MG TABLET PO PRN (22:14)
--- NOTE | 2017-11-16 22:14 | NUR ---
GPS RN NOTES: PATIENT VERY ANXIOUS, PATIENT IS REQUESTING FOR ATIVAN. VITAL SIGNS ARE STABLE. ATIVAN 0.5MG PO GIVEN PRN ORDER. WILL CONTINUE TO MONITOR [id number] FOR SAFETY AND BEHAVIOR.
[2017-11-17] MEDS: LEVOTHYROXINE SODIUM 88 MCG TABLET PO SCH (07:50)
[2017-11-17] MEDS: PANTOPRAZOLE 40 MG TABLET.DR PO SCH (07:50)
[2017-11-17 08:00] VITALS: BP 150/69
[2017-11-17] MEDS: CYANOCOBALAMIN 500 MCG TABLET PO SCH (09:31)
[2017-11-17] MEDS: POLYETHYLENE GLYCOL 3350 17 GM POWD.PACK PO SCH (09:31)
[2017-11-17] MEDS: LOSARTAN POTASSIUM 50 MG TABLET PO SCH (09:32)
[2017-11-17 12:27] LABS: ALANINE AMINOTRANSFERASE 29 U/L (12-78); ALKALINE PHOSPHATASE 88 U/L (46-116); ASPARTATE AMINOTRANSFERASE 17 U/L (15-37); BILIRUBIN,TOTAL 1.2 mg/dL (0.2-1.0); CALCIUM, SERUM 10.1 mg/dL (8.5-10.1); CARBON DIOXIDE 26 mmol/L (21-32); CHLORIDE 109 mmol/L (98-107); CREATININE 1.3 mg/dL (0.6-1.3); GLUCOSE 117 mg/dL (74-106); POTASSIUM 4.3 mmol/L (3.5-5.1); SODIUM SERUM 146 mmol/L (136-145); TOTAL PROTEIN, SERUM 7.4 g/dL (6.4-8.2); UREA NITROGEN, BLOOD 17 mg/dL (7-18)
[2017-11-17 12:29] LABS: CHOLESTEROL 162 mg/dL (<200); HDL CHOLESTEROL 42 mg/dL (40-60); LDL 100 mg/dL (0-99); TRIGLYCERIDES 165 mg/dL (30-150)
[2017-11-17] MEDS: LORAZEPAM 0.5 MG TABLET PO PRN ×2 (13:13→22:02)
--- NOTE | 2017-11-17 13:13 | NUR ---
RN NOTE: PATIENT IS ANXIOUS. LORAZEPAM 05MG GIVEN.
--- NOTE | 2017-11-17 14:25 | NUR ---
SW attests to the accuracy of the psychosocial dated 11/05/17 at 9:58am. There have been no changes to patient's information. Upon assessment by social science teacher today, patient appears well-groomed. Patient is alert and oriented x4. Patient is on voluntary stay. Patient states that she wants to return back home to [place] [address] / [phone]. Patient states that she is feeling anxious and depressed because she likes to be around people and she felt isolated after discharging from the hospital on 11/11/17. Patient states that she feels like she needs a little more time.
[2017-11-17 16:13] VITALS: BP 135/61
[2017-11-17 20:19] VITALS: BP 148/76
[2017-11-17] MEDS: SIMVASTATIN 10 MG TABLET PO SCH (21:26)
[2017-11-17] MEDS: TRAZODONE 50 MG TABLET PO SCH (21:27)
--- NOTE | 2017-11-17 22:02 | NUR ---
GPS RN NOTES: PATIENT IS ANXIOUS, PATIENT IS REQUESTING ATIVAN, VITAL SIGNS ARE STABLE. ATIVAN 0.5MG PO GIVEN PRN ORDER. WILL CONTINUE TO MONITOR [id number] FOR SAFETY AND BEHAVIOR.
[2017-11-18] MEDS: LORAZEPAM 0.5 MG TABLET PO PRN ×2 (05:13→21:48)
--- NOTE | 2017-11-18 05:13 | NUR ---
GPS RN NOTES: PATIENT IS ANXIOUS, PATIENT IS REQUESTING ATIVAN, VITAL SIGNS ARE STABLE. ATIVAN 0.5MG PO GIVEN PRN ORDER. WILL CONTINUE TO MONITOR [id number] FOR SAFETY AND BEHAVIOR.
--- NOTE | 2017-11-18 05:29 | NUR ---
GPS RN NOTES: PATIENT C/O OF PAIN ON HER BILATERAL LOWER LEGS, PATIENT RATES 3/10. V/S ARE STABLE. ACETAMINOPHEN 650MG PO GIVEN PRN ORDER. WILL CONTINUE TO MONITOR AND ASSESS FOR PAIN.
[2017-11-18 08:00] VITALS: BP 145/68
[2017-11-18] MEDS: LEVOTHYROXINE SODIUM 88 MCG TABLET PO SCH (08:46)
[2017-11-18] MEDS: PANTOPRAZOLE 40 MG TABLET.DR PO SCH (08:46)
[2017-11-18] MEDS: CYANOCOBALAMIN 500 MCG TABLET PO SCH (08:46)
[2017-11-18] MEDS: LORAZEPAM 0.5 MG TABLET PO SCH ×3 (08:47→16:56)
[2017-11-18] MEDS: LOSARTAN POTASSIUM 50 MG TABLET PO SCH (08:47)
[2017-11-18] MEDS: POLYETHYLENE GLYCOL 3350 17 GM POWD.PACK PO SCH (08:48)
[2017-11-18] MEDS ORDERED: POLYETHYLENE GLYCOL 3350 17 GM POWD.PACK PO SCH (09:00)
[2017-11-18 16:00] VITALS: BP 139/77
[2017-11-18 20:00] VITALS: BP 138/77
[2017-11-18] MEDS: DOXEPIN HCL (25 MG) 25 MG CAPSULE PO SCH (21:20)
[2017-11-18] MEDS: TRAZODONE 50 MG TABLET PO SCH (21:21)
[2017-11-18] MEDS: SIMVASTATIN 10 MG TABLET PO SCH (21:22)
[2017-11-19 07:03] LABS: CALCIUM, SERUM 9.4 mg/dL (8.5-10.1); CARBON DIOXIDE 30 mmol/L (21-32); CHLORIDE 108 mmol/L (98-107); CREATININE 1.2 mg/dL (0.6-1.3); GLUCOSE 101 mg/dL (74-106); MAGNESIUM 2.2 mg/dL (1.8-2.4); PHOSPHORUS 3.6 mg/dL (2.5-4.9); POTASSIUM 4.2 mmol/L (3.5-5.1); SODIUM SERUM 143 mmol/L (136-145); UREA NITROGEN, BLOOD 18 mg/dL (7-18)
[2017-11-19] MEDS: LEVOTHYROXINE SODIUM 88 MCG TABLET PO SCH (07:46)
[2017-11-19] MEDS: PANTOPRAZOLE 40 MG TABLET.DR PO SCH (07:46)
[2017-11-19 08:42] VITALS: BP 120/60
[2017-11-19] MEDS: POLYETHYLENE GLYCOL 3350 17 GM POWD.PACK PO SCH (08:43)
[2017-11-19] MEDS: LOSARTAN POTASSIUM 50 MG TABLET PO SCH (08:44)
[2017-11-19] MEDS: CYANOCOBALAMIN 500 MCG TABLET PO SCH (08:44)
[2017-11-19] MEDS: LORAZEPAM 0.5 MG TABLET PO SCH ×3 (08:45→16:17)
--- NOTE | 2017-11-19 15:46 | NUR ---
Discharge Planning: SW spoke with patient who stated that she feels better, but is still anxious. Patient again expressed her desire to return home once stable.
[2017-11-19 16:20] VITALS: BP 119/78
--- NOTE | 2017-11-19 17:37 | NUR ---
GPS/RN-NOTES PATIENT CLAIMED PATIENT IN [address]. 219 CAME TO HER ROOM AND START SCREAMING AND YELLING AT HER. STATED" I'M SCARED OF HER". CHARGE NURSE AWARE. OFFERED PATIENT TRANSFER HER TO OTHER ROOM AND AGREES.
--- NOTE | 2017-11-19 19:30 | NUR ---
GPS RN NOTE, RECEIVED PATIENT AWAKE AND IN BED, NO S/S OR COMPLAINTS OF PAIN AT THIS TIME. PATIENT IS DISPLAYING NO S/S OF APPARENT DISTRESS AT THIS TIME. PATIENT BREATHING IS UNLABORED WITH EQUAL RISE AND FALL OF THE CHEST. PATIENT IS ALERT AND ORIENTED X 4 ON ROOM AIR WITH A SPO2 OF 98%. PATIENT IS COMPLIANT WITH MEDICATION, DISORGANIZED, ANXIOUS, PARANOID, AND NEEDS REORIENTATION. PATIENT DENIES SUICIDE IDEATIONS AND HOMICIDAL IDEATIONS AT THIS TIME. PATIENT ASSISTED WITH TURNING AND REPOSITIONING Q2HR AND PRN FOR COMFORT AND CIRCULATION. PATIENT HAS NO NEEDS AT THIS TIME. PATIENT EDUCATED ON THE USE OF THE CALL GLORIA. PATIENT SIDE RAILS ARE UP X 2, BED IS LOCKED AND LOW, AND I WILL CONTINUE TO MONITOR THIS PATIENT Q 15 MIN WITH THE HELP OF STAFF.
[2017-11-19 20:00] VITALS: BP 146/65
[2017-11-19] MEDS: DOXEPIN HCL (25 MG) 25 MG CAPSULE PO SCH (21:53)
[2017-11-19] MEDS: TRAZODONE 50 MG TABLET PO SCH (21:54)
[2017-11-19] MEDS: SIMVASTATIN 10 MG TABLET PO SCH (21:54)
[2017-11-20] MEDS: LORAZEPAM 0.5 MG TABLET PO PRN (01:30)
--- NOTE | 2017-11-20 01:30 | NUR ---
GPS RN NOTE, PATIENT HAS A COMPLAINT OF FEELING ANXIOUS AND IS REQUESTING ATIVAN AT THIS TIME. PATIENT VITAL SIGNS ARE STABLE. GAVE ATIVAN 0.5MG PO Q6HR PRN ORDERED. WILL REASSESS FOR ANXIETY AND I WILL CONTINUE TO MONITOR THIS PATIENT.
[2017-11-20] MEDS: LEVOTHYROXINE SODIUM 88 MCG TABLET PO SCH (07:37)
[2017-11-20] MEDS: PANTOPRAZOLE 40 MG TABLET.DR PO SCH (07:37)
[2017-11-20 08:00] VITALS: BP 149/74
[2017-11-20] MEDS: CYANOCOBALAMIN 500 MCG TABLET PO SCH (08:44)
[2017-11-20] MEDS: POLYETHYLENE GLYCOL 3350 17 GM POWD.PACK PO SCH (08:44)
[2017-11-20] MEDS: LOSARTAN POTASSIUM 50 MG TABLET PO SCH (08:44)
[2017-11-20] MEDS: LORAZEPAM 0.5 MG TABLET PO SCH ×3 (08:45→16:41)
[2017-11-20 16:00] VITALS: BP 125/77
[2017-11-20 20:00] VITALS: BP 104/68
[2017-11-20] MEDS: DOXEPIN HCL (25 MG) 25 MG CAPSULE PO SCH (21:14)
[2017-11-20] MEDS: TRAZODONE 50 MG TABLET PO SCH (21:14)
[2017-11-20] MEDS: SIMVASTATIN 10 MG TABLET PO SCH (21:14)
[2017-11-21] MEDS: PANTOPRAZOLE 40 MG TABLET.DR PO SCH (07:44)
[2017-11-21] MEDS: LEVOTHYROXINE SODIUM 88 MCG TABLET PO SCH (07:44)
[2017-11-21 07:59] VITALS: BP 144/78
[2017-11-21] MEDS: LORAZEPAM 0.5 MG TABLET PO SCH ×3 (09:12→16:24)
[2017-11-21] MEDS: LOSARTAN POTASSIUM 50 MG TABLET PO SCH (09:12)
[2017-11-21] MEDS: POLYETHYLENE GLYCOL 3350 17 GM POWD.PACK PO SCH (09:12)
[2017-11-21] MEDS: CYANOCOBALAMIN 500 MCG TABLET PO SCH (09:13)
[2017-11-21 15:33] VITALS: BP 128/73
[2017-11-21 19:47] VITALS: BP 130/69
[2017-11-21] MEDS: DOXEPIN HCL (25 MG) 25 MG CAPSULE PO SCH (21:23)
[2017-11-21] MEDS: SIMVASTATIN 10 MG TABLET PO SCH (21:24)
[2017-11-21] MEDS: TRAZODONE 50 MG TABLET PO SCH (21:24)
[2017-11-21] MEDS: LORAZEPAM 0.5 MG TABLET PO PRN (22:39)
--- NOTE | 2017-11-21 22:39 | NUR ---
GPS RN NOTES: NOTED PATIENT VERY ANXIOUS, VITAL SIGNS ARE STABLE, ATIVAN 0.5MG PO GIVEN PRN ORDER, WILL CONTINUE TO MONITOR [id number] FOR SAFETY AND BEHAVIOR.
[2017-11-22] MEDS: PANTOPRAZOLE 40 MG TABLET.DR PO SCH (07:30)
[2017-11-22] MEDS: LEVOTHYROXINE SODIUM 88 MCG TABLET PO SCH (07:30)
[2017-11-22 08:00] VITALS: BP 147/81
[2017-11-22] MEDS: LORAZEPAM 0.5 MG TABLET PO SCH ×3 (09:17→16:02)
[2017-11-22] MEDS: CYANOCOBALAMIN 500 MCG TABLET PO SCH (09:17)
[2017-11-22] MEDS: LOSARTAN POTASSIUM 50 MG TABLET PO SCH (09:19)
[2017-11-22] MEDS: POLYETHYLENE GLYCOL 3350 17 GM POWD.PACK PO SCH (09:19)
[2017-11-22 16:08] VITALS: BP 142/71
[2017-11-22 20:15] VITALS: BP 128/75
[2017-11-22] MEDS: DOXEPIN HCL (25 MG) 25 MG CAPSULE PO SCH (21:14)
[2017-11-22] MEDS: TRAZODONE 50 MG TABLET PO SCH (21:14)
[2017-11-22] MEDS: SIMVASTATIN 10 MG TABLET PO SCH (21:14)
[2017-11-22] MEDS: LORAZEPAM 0.5 MG TABLET PO PRN (23:19)
--- NOTE | 2017-11-22 23:27 | NUR ---
Patient complaint of feeling anxious,requested and given Ativan 0.5 mg PO.The Ativan 0.25 mg tab recorded in the omni cell as waste amount was not wasted.The patient received the 0.5 mg Ativan PO.Will monitor for the effect of the medication in a hour.
[2017-11-23] MEDS: PANTOPRAZOLE 40 MG TABLET.DR PO SCH (07:06)
[2017-11-23] MEDS: LEVOTHYROXINE SODIUM 88 MCG TABLET PO SCH (07:06)
[2017-11-23 08:00] VITALS: BP 150/72
[2017-11-23 08:05] VITALS: BP 150/72
[2017-11-23] MEDS: LORAZEPAM 0.5 MG TABLET PO SCH ×2 (08:05→12:45)
[2017-11-23] MEDS: LOSARTAN POTASSIUM 50 MG TABLET PO SCH (08:05)
[2017-11-23] MEDS: POLYETHYLENE GLYCOL 3350 17 GM POWD.PACK PO SCH (08:05)
[2017-11-23] MEDS: CYANOCOBALAMIN 500 MCG TABLET PO SCH (08:05)
--- NOTE | 2017-11-23 13:46 | NUR ---
Discharge Note: Patient to discharge home to [address] [place] [address] / [phone]. Patient stated that she will use her [employer] account on her phone to order transportation. SW charged her phone. SW will assist in calling [employer] for patient. SW notified patients sisterOdilia [phone] of the discharge. Patient appears to be cooperative. Patient was assessed for and denied suicidal and homicidal ideation. Patient also denied visual and auditory hallucinations. SW spoke with patient regarding her follow-up appointments. Patient stated that she would like to make those appointments herself because she has to coordinate with her schedule and with transportation. Patient stated that she does not want SW to make appointments for her. Patient stated that she will follow up with her acid tank cleaner, Dr. Cornell [address] [facility] [address], [place] [address] / [phone]. Patient will also see her psychiatrist Dr. Ponce [address] [facility] [address] [address]/ [phone].
--- NOTE | 2017-11-23 15:50 | NUR ---
JULIO faxed home health order to [facility], / fax #[phone].
--- NOTE | 2017-11-23 16:00 | NUR ---
GPS/RN PATIENT CLEARED FOR DISCHARGE TO THE [facility] BY DR MCCARTNEY AND DR PEREZ. MEDICATIONS, AFTERCARE PLAN AND EXIT CARE EXPLAINED TO PATIENT, VERBALIZED UNDERSTANDING. PSYCHIATRIC PRESCRIPTIONS FAXED TO [facility], PATIENT STATED THAT SHE DOES NOT NEED MEDICAL MEDICATION PRESCRIPTIONS. HOME HEALTH ORDER PER DR PEREZ. ALL D/C PAPERWORK AND BELONGING SHEET SIGNED BY PATIENT, ALL BELONGINGS AND VALUABLES RETURNED TO PATIENT REFUSED D/C PHOTOS. PAIENT DENIES SI/HI/AH UPON DISCHARGE, PSYCHIATRIC TREATMENT PLANS MET, LEFT UNIT CALM, COOPERATIVE, NO DISTRESS WITH HOSPICE/HOME HEALTH AIDE AT SIDE.
== END 2017-11-23 16:00 | disposition home health service (06) | DRG 885 ==
LOC: ER 11:04 → GPS 15:52
PROVIDERS: ADMIT Psychiatry & Neurology Psychiatry; ATTEND Internal Medicine
DX: F33.9 Major depressive disorder, recurrent, unspecified (principal); N17.9 Acute kidney failure, unspecified; N18.9 Chronic kidney disease, unspecified; E83.52 Hypercalcemia; E03.9 Hypothyroidism, unspecified; E78.5 Hyperlipidemia, unspecified; F41.9 Anxiety disorder, unspecified; K21.9 Gastro-esophageal reflux disease without esophagitis; K44.9 Diaphragmatic hernia without obstruction or gangrene; K57.30 Diverticulosis of large intestine without perforation or abscess without bleeding; K58.9 Irritable bowel syndrome, unspecified; Z90.710 Acquired absence of both cervix and uterus; N20.0 Calculus of kidney; I12.9 Hypertensive chronic kidney disease with stage 1 through stage 4 chronic kidney disease, or unspecified chronic kidney disease; Z96.652 Presence of left artificial knee joint; Z88.0 Allergy status to penicillin; Z88.2 Allergy status to sulfonamides; R94.5 Abnormal results of liver function studies
CPT/HCPCS: 36415; 80048-TC; 80053-TC; 80061-TC; 80076-TC; 80305; 81000-TC; 83735-TC; 84100-TC; 85025-TC; 87081-TC; A4606; G0480; J7040; Z7610